=== PATIENT | female | born 1970 | race Caucasian/White ===

== ENCOUNTER 2017-09-26 19:43 | Emergency (ER) | payer MEDICAID ==
[~2017-09-26] VITALS: Ht 157.5 cm; Wt 84.5 kg
[2017-09-26 20:22] VITALS: Ht 157.5 cm; Wt 84.5 kg
[2017-09-27] MEDS ORDERED: ACET500C5 PO (00:35)
--- NOTE | 2017-09-27 00:39 | ERD ---
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 Patient reports that she also fell on her left knee. States that she took Tylenol at 7 PM. Denies any chest pain, shortness of breath, nausea, vomiting, diarrhea, dizziness. Denies any weakness, fever, chills. ROS All systems reviewed and are negative except as per history of present illness. Medications Home Meds Active Scripts Acetaminophen* (Tylophen*) 500 Mg Capsule, 1 CAP PO Q6H Y for PAIN AND OR ELEVATED TEMP, #20 CAP Prov:DORA ALMODOVAR PA-C 09/27/17 Allergies Allergies: Coded Allergies: cephalexin (Verified Allergy, Severe, rash, 09/26/17) PMhx/Soc Medical and Surgical Hx: pt denies Medical Hx, pt denies Surgical Hx History of Surgery: No Anesthesia Reaction: No Hx Neurological Disorder: No Hx Respiratory Disorders: No Hx Cardiac Disorders: No Hx Psychiatric Problems: No Hx Miscellaneous Medical Probl: No Hx Alcohol Use: No Hx Substance Use: No Hx Tobacco Use: No Smoking Status: Never smoker Physical Exam Vitals Vital Signs Date Time Temp Pulse Resp B/P Pulse Ox O2 Delivery O2 Flow Rate FiO2 09/26/17 20:22 98.5 72 20 151/63 98 Physical Exam Const: [id number], well-nourished. In no acute distress. Head: Atraumatic, normocephalic Eyes: Normal Conjunctiva without injection ENT: Normal external ear, nose and mouth. Neck: Full range of motion. No meningismus. Resp: Clear to auscultation bilaterally. No wheezing, rhonchi, rales, or crackles. No accessory muscle use. No retractions. Cardio: Regular rate and rhythm, no murmurs Skin: No petechiae or rashes Back: No midline tenderness. No CVA tenderness. Ext: No cyanosis, or edema. Cap refill less than 2 seconds. Distal pulses intact bilaterally. Tenderness to palpation of right lateral malleolus and distal phalanx. No deformities. No erythema. Tenderness to palpation of left knee. Limping gait due to pain. Neur: Awake and alert. Limping gait and normal coordination. Muscle strength 5/ 5. Sensation intact bilaterally. Psych: Normal Mood and Affect Procedures/MDM This is a 47-year-old female patient with no significant past medical history presents to the ED complaining of a mechanical fall 4 hours prior to arrival. Patient is afebrile and nontoxic-appearing. Patient has normal vital signs. A left knee x-ray, right ankle, right foot x-ray was ordered to further evaluate patient. Pending the x-ray results, this patient has been signed out to my colleague, JOE Corley. PROCEDURE: XR Knee. CLINICAL INDICATION: Pain. TECHNIQUE: Three views of the left knee are available for review. COMPARISON: None available FINDINGS: There is no fracture. Joint relationships are maintained. Bone mineralization is within normal limits. A suprapatellar joint effusion is likely. Soft tissues are otherwise unremarkable. IMPRESSION: 1. Probable suprapatellar joint effusion. 2. No acute fracture or dislocation is seen. PROCEDURE: XR Right Ankle. CLINICAL INDICATION: Injury. Pain. TECHNIQUE: Three views of the right ankle were performed. COMPARISON: None. FINDINGS: There is lateral malleolar subcutaneous soft tissue swelling. There is no underlying fracture. Joint relationships are maintained. Ankle mortise is intact. Plantar calcaneal bone spur is present. Bone mineralization is within normal limits. IMPRESSION: Lateral malleolar subcutaneous soft tissue swelling without underlying fracture. Plantar calcaneal bone spur. PROCEDURE: XR Right Foot. CLINICAL INDICATION: Pain. TECHNIQUE: AP, lateral and oblique views of the right foot was obtained. The images were reviewed on a PACS workstation. COMPARISON: None. FINDINGS: There are no fractures. Joint relationships are maintained. Bone mineralization is within normal limits. Plantar calcaneal bone spur is present. There is lateral malleolar subcutaneous soft tissue swelling IMPRESSION: Lateral malleolar subcutaneous soft tissue swelling. No underlying fracture. Plantar calcaneal bone spur. Left knee immobilizer and albertina wrap of right ankle applied. Crutches given to patient to help with ambulation. Splint Assessment: Neurovascularly intact pre and post splint placement with good fit. Left knee sprain and right ankle sprain noted. Patient's extremity symptoms have stabilized while they have been evaluated in the department and are appropriate for outpatient follow up. No evidence of fractures, dislocations, compartment syndrome, neurologic injury, vascular injury, open joint, open fracture, tendon laceration, septic arthritis, osteomyelitis, DVT, foreign body , or other emergent conditions. Discharge medications: Tylenol Follow up with primary care physician in 1-2 days for a referral to an orthopedic physician. Instructed patient to return to the ED sooner for any worsening symptoms. Patient's questions were answered. Patient understood and agreed with discharge plan. Patient discharged stable. Departure Diagnosis: Primary Impression: Ankle injury Encounter type: initial encounter Laterality: right Qualified Code: S99.911A - Injury of right ankle, initial encounter Additional Impressions: Knee injury Encounter type: initial encounter Laterality: left Qualified Code: S89.92XA - Injury of left knee, initial encounter Foot injury Encounter type: initial encounter Laterality: right Qualified Code: S99.921A - Injury of right foot, initial encounter Condition: Stable Patient Instructions: What Are Ankle Sprains?, Reducing Knee Pain and Swelling , Sprain Foot Referrals: [facility] YOU HAVE RECEIVED A MEDICAL SCREENING EXAM AND THE RESULTS INDICATE THAT YOU DO NOT HAVE A CONDITION THAT REQUIRES URGENT TREATMENT IN THE EMERGENCY DEPARTMENT. FURTHER EVALUATION AND TREATMENT OF YOUR CONDITION CAN WAIT UNTIL YOU ARE SEEN IN YOUR DOCTORS OFFICE WITHIN THE NEXT 1-2 DAYS. IT IS YOUR RESPONSIBILITY TO MAKE AN APPOINTMENT FOR FOLOW-UP CARE. IF YOU HAVE A PRIMARY DOCTOR --you should call your primary doctor and schedule an appointment IF YOU DO NOT HAVE A PRIMARY DOCTOR YOU CAN CALL OUR PHYSICIAN REFERRAL HOTLINE AT IF YOU CAN NOT AFFORD TO SEE A PHYSICIAN YOU CAN CHOSE FROM THE FOLLOWING [facility] [address] [facility]. [facility] [address] [facility]. [facility] [address] [facility]. [facility] [address] [facility]. [facility] [address] [facility]. [facility]. [address] [facility]. [facility] YOU HAVE RECEIVED A MEDICAL SCREENING EXAM AND THE RESULTS INDICATE THAT YOU DO NOT HAVE A CONDITION THAT REQUIRES URGENT TREATMENT IN THE EMERGENCY DEPARTMENT. FURTHER EVALUATION AND TREATMENT OF YOUR CONDITION CAN WAIT UNTIL YOU ARE SEEN IN YOUR DOCTORS OFFICE WITHIN THE NEXT 1-2 DAYS. IT IS YOUR RESPONSIBILITY TO MAKE AN APPOINTMENT FOR FOLOW-UP CARE. IF YOU HAVE A PRIMARY DOCTOR --you should call your primary doctor and schedule and appointment IF YOU DO NOT HAVE A PRIMARY DOCTOR YOU CAN CALL OUR PHYSICIAN REFERRAL HOTLINE AT . IF YOU CAN NOT AFFORD TO SEE A PHYSICIAN YOU CAN CHOSE FROM THE FOLLOWING [facility] INSTITUTIONS: [facility] [address] [place] [address] [facility] [address] [place] [address] [facility] + [facility] [address] [place] [address] [facility] URGENT CARE/SPECIALTIES Additional Instructions: FOLLOW UP WITH YOUR PRIMARY CARE PHYSICIAN TOMORROW for a referral to an orthopedic physician for further evaluation and treatment.Return to this facility if you are not improving as expected. DORA ALMODOVAR PA-C Sep 27, 2017 00:39
--- NOTE | 2017-09-27 00:39 | ERD ---
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 Patient reports that she also fell on her left knee. States that she took Tylenol at 7 PM. Denies any chest pain, shortness of breath, nausea, vomiting, diarrhea, dizziness. Denies any weakness, fever, chills. ROS All systems reviewed and are negative except as per history of present illness. Medications Home Meds Active Scripts Acetaminophen* (Tylophen*) 500 Mg Capsule, 1 CAP PO Q6H Y for PAIN AND OR ELEVATED TEMP, #20 CAP Prov:DORA ALMODOVAR PA-C 09/27/17 Allergies Allergies: Coded Allergies: cephalexin (Verified Allergy, Severe, rash, 09/26/17) PMhx/Soc Medical and Surgical Hx: pt denies Medical Hx, pt denies Surgical Hx History of Surgery: No Anesthesia Reaction: No Hx Neurological Disorder: No Hx Respiratory Disorders: No Hx Cardiac Disorders: No Hx Psychiatric Problems: No Hx Miscellaneous Medical Probl: No Hx Alcohol Use: No Hx Substance Use: No Hx Tobacco Use: No Smoking Status: Never smoker Physical Exam Vitals Vital Signs Date Time Temp Pulse Resp B/P Pulse Ox O2 Delivery O2 Flow Rate FiO2 09/26/17 20:22 98.5 72 20 151/63 98 Physical Exam Const: Sqv-zae-[id number], well-nourished. In no acute distress. Head: Atraumatic, normocephalic Eyes: Normal Conjunctiva without injection ENT: Normal external ear, nose and mouth. Neck: Full range of motion. No meningismus. Resp: Clear to auscultation bilaterally. No wheezing, rhonchi, rales, or crackles. No accessory muscle use. No retractions. Cardio: Regular rate and rhythm, no murmurs Skin: No petechiae or rashes Back: No midline tenderness. No CVA tenderness. Ext: No cyanosis, or edema. Cap refill less than 2 seconds. Distal pulses intact bilaterally. Tenderness to palpation of right lateral malleolus and distal phalanx. No deformities. No erythema. Tenderness to palpation of left knee. Limping gait due to pain. Neur: Awake and alert. Limping gait and normal coordination. Muscle strength 5/ 5. Sensation intact bilaterally. Psych: Normal Mood and Affect Procedures/MDM This is a 47-year-old female patient with no significant past medical history presents to the ED complaining of a mechanical fall 4 hours prior to arrival. Patient is afebrile and nontoxic-appearing. Patient has normal vital signs. A left knee x-ray, right ankle, right foot x-ray was ordered to further evaluate patient. Pending the x-ray results, this patient has been signed out to my colleague, JOE Corley. PROCEDURE: XR Knee. CLINICAL INDICATION: Pain. TECHNIQUE: Three views of the left knee are available for review. COMPARISON: None available FINDINGS: There is no fracture. Joint relationships are maintained. Bone mineralization is within normal limits. A suprapatellar joint effusion is likely. Soft tissues are otherwise unremarkable. IMPRESSION: 1. Probable suprapatellar joint effusion. 2. No acute fracture or dislocation is seen. PROCEDURE: XR Right Ankle. CLINICAL INDICATION: Injury. Pain. TECHNIQUE: Three views of the right ankle were performed. COMPARISON: None. FINDINGS: There is lateral malleolar subcutaneous soft tissue swelling. There is no underlying fracture. Joint relationships are maintained. Ankle mortise is intact. Plantar calcaneal bone spur is present. Bone mineralization is within normal limits. IMPRESSION: Lateral malleolar subcutaneous soft tissue swelling without underlying fracture. Plantar calcaneal bone spur. PROCEDURE: XR Right Foot. CLINICAL INDICATION: Pain. TECHNIQUE: AP, lateral and oblique views of the right foot was obtained. The images were reviewed on a PACS workstation. COMPARISON: None. FINDINGS: There are no fractures. Joint relationships are maintained. Bone mineralization is within normal limits. Plantar calcaneal bone spur is present. There is lateral malleolar subcutaneous soft tissue swelling IMPRESSION: Lateral malleolar subcutaneous soft tissue swelling. No underlying fracture. Plantar calcaneal bone spur. Left knee immobilizer and albertina wrap of right ankle applied. Crutches given to patient to help with ambulation. Splint Assessment: Neurovascularly intact pre and post splint placement with good fit. Left knee sprain and right ankle sprain noted. Patient's extremity symptoms have stabilized while they have been evaluated in the department and are appropriate for outpatient follow up. No evidence of fractures, dislocations, compartment syndrome, neurologic injury, vascular injury, open joint, open fracture, tendon laceration, septic arthritis, osteomyelitis, DVT, foreign body , or other emergent conditions. Discharge medications: Tylenol Follow up with primary care physician in 1-2 days for a referral to an orthopedic physician. Instructed patient to return to the ED sooner for any worsening symptoms. Patient's questions were answered. Patient understood and agreed with discharge plan. Patient discharged stable. Departure Diagnosis: Primary Impression: Ankle injury Encounter type: initial encounter Laterality: right Qualified Code: S99.911A - Injury of right ankle, initial encounter Additional Impressions: Knee injury Encounter type: initial encounter Laterality: left Qualified Code: S89.92XA - Injury of left knee, initial encounter Foot injury Encounter type: initial encounter Laterality: right Qualified Code: S99.921A - Injury of right foot, initial encounter Condition: Stable Patient Instructions: What Are Ankle Sprains?, Reducing Knee Pain and Swelling , Sprain Foot Referrals: [facility] YOU HAVE RECEIVED A MEDICAL SCREENING EXAM AND THE RESULTS INDICATE THAT YOU DO NOT HAVE A CONDITION THAT REQUIRES URGENT TREATMENT IN THE EMERGENCY DEPARTMENT. FURTHER EVALUATION AND TREATMENT OF YOUR CONDITION CAN WAIT UNTIL YOU ARE SEEN IN YOUR DOCTORS OFFICE WITHIN THE NEXT 1-2 DAYS. IT IS YOUR RESPONSIBILITY TO MAKE AN APPOINTMENT FOR FOLOW-UP CARE. IF YOU HAVE A PRIMARY DOCTOR --you should call your primary doctor and schedule an appointment IF YOU DO NOT HAVE A PRIMARY DOCTOR YOU CAN CALL OUR PHYSICIAN REFERRAL HOTLINE AT IF YOU CAN NOT AFFORD TO SEE A PHYSICIAN YOU CAN CHOSE FROM THE FOLLOWING [facility] [address] [facility]. [facility] [address] [facility]. [facility] [address] [facility] [address] [facility] [address] [facility]. [facility]. [address] [facility]. [facility] YOU HAVE RECEIVED A MEDICAL SCREENING EXAM AND THE RESULTS INDICATE THAT YOU DO NOT HAVE A CONDITION THAT REQUIRES URGENT TREATMENT IN THE EMERGENCY DEPARTMENT. FURTHER EVALUATION AND TREATMENT OF YOUR CONDITION CAN WAIT UNTIL YOU ARE SEEN IN YOUR DOCTORS OFFICE WITHIN THE NEXT 1-2 DAYS. IT IS YOUR RESPONSIBILITY TO MAKE AN APPOINTMENT FOR FOLOW-UP CARE. IF YOU HAVE A PRIMARY DOCTOR --you should call your primary doctor and schedule and appointment IF YOU DO NOT HAVE A PRIMARY DOCTOR YOU CAN CALL OUR PHYSICIAN REFERRAL HOTLINE AT . IF YOU CAN NOT AFFORD TO SEE A PHYSICIAN YOU CAN CHOSE FROM THE FOLLOWING [facility] INSTITUTIONS: [facility] [address] [place] [address] [facility] [address] [place] [address] [facility] + [facility] [address] [place] [address] [facility] URGENT CARE/SPECIALTIES Additional Instructions: FOLLOW UP WITH YOUR PRIMARY CARE PHYSICIAN TOMORROW for a referral to an orthopedic physician for further evaluation and treatment.Return to this facility if you are not improving as expected. DORA ALMODOVAR PA-C Sep 27, 2017 00:39
--- NOTE | 2017-09-27 00:39 | ERD ---
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 Patient reports that she also fell on her left knee. States that she took Tylenol at 7 PM. Denies any chest pain, shortness of breath, nausea, vomiting, diarrhea, dizziness. Denies any weakness, fever, chills. ROS All systems reviewed and are negative except as per history of present illness. Medications Home Meds Active Scripts Acetaminophen* (Tylophen*) 500 Mg Capsule, 1 CAP PO Q6H Y for PAIN AND OR ELEVATED TEMP, #20 CAP Prov:DORA ALMODOVAR PA-C 09/27/17 Allergies Allergies: Coded Allergies: cephalexin (Verified Allergy, Severe, rash, 09/26/17) PMhx/Soc Medical and Surgical Hx: pt denies Medical Hx, pt denies Surgical Hx History of Surgery: No Anesthesia Reaction: No Hx Neurological Disorder: No Hx Respiratory Disorders: No Hx Cardiac Disorders: No Hx Psychiatric Problems: No Hx Miscellaneous Medical Probl: No Hx Alcohol Use: No Hx Substance Use: No Hx Tobacco Use: No Smoking Status: Never smoker Physical Exam Vitals Vital Signs Date Time Temp Pulse Resp B/P Pulse Ox O2 Delivery O2 Flow Rate FiO2 09/26/17 20:22 98.5 72 20 151/63 98 Physical Exam Const: Swl-lrd-mwlvnnzqs, well-nourished. In no acute distress. Head: Atraumatic, normocephalic Eyes: Normal Conjunctiva without injection ENT: Normal external ear, nose and mouth. Neck: Full range of motion. No meningismus. Resp: Clear to auscultation bilaterally. No wheezing, rhonchi, rales, or crackles. No accessory muscle use. No retractions. Cardio: Regular rate and rhythm, no murmurs Skin: No petechiae or rashes Back: No midline tenderness. No CVA tenderness. Ext: No cyanosis, or edema. Cap refill less than 2 seconds. Distal pulses intact bilaterally. Tenderness to palpation of right lateral malleolus and distal phalanx. No deformities. No erythema. Tenderness to palpation of left knee. Limping gait due to pain. Neur: Awake and alert. Limping gait and normal coordination. Muscle strength 5/ 5. Sensation intact bilaterally. Psych: Normal Mood and Affect Procedures/MDM This is a 47-year-old female patient with no significant past medical history presents to the ED complaining of a mechanical fall 4 hours prior to arrival. Patient is afebrile and nontoxic-appearing. Patient has normal vital signs. A left knee x-ray, right ankle, right foot x-ray was ordered to further evaluate patient. Pending the x-ray results, this patient has been signed out to my colleague, JOE Corley. PROCEDURE: XR Knee. CLINICAL INDICATION: Pain. TECHNIQUE: Three views of the left knee are available for review. COMPARISON: None available FINDINGS: There is no fracture. Joint relationships are maintained. Bone mineralization is within normal limits. A suprapatellar joint effusion is likely. Soft tissues are otherwise unremarkable. IMPRESSION: 1. Probable suprapatellar joint effusion. 2. No acute fracture or dislocation is seen. PROCEDURE: XR Right Ankle. CLINICAL INDICATION: Injury. Pain. TECHNIQUE: Three views of the right ankle were performed. COMPARISON: None. FINDINGS: There is lateral malleolar subcutaneous soft tissue swelling. There is no underlying fracture. Joint relationships are maintained. Ankle mortise is intact. Plantar calcaneal bone spur is present. Bone mineralization is within normal limits. IMPRESSION: Lateral malleolar subcutaneous soft tissue swelling without underlying fracture. Plantar calcaneal bone spur. PROCEDURE: XR Right Foot. CLINICAL INDICATION: Pain. TECHNIQUE: AP, lateral and oblique views of the right foot was obtained. The images were reviewed on a PACS workstation. COMPARISON: None. FINDINGS: There are no fractures. Joint relationships are maintained. Bone mineralization is within normal limits. Plantar calcaneal bone spur is present. There is lateral malleolar subcutaneous soft tissue swelling IMPRESSION: Lateral malleolar subcutaneous soft tissue swelling. No underlying fracture. Plantar calcaneal bone spur. Left knee immobilizer and albertina wrap of right ankle applied. Crutches given to patient to help with ambulation. Splint Assessment: Neurovascularly intact pre and post splint placement with good fit. Left knee sprain and right ankle sprain noted. Patient's extremity symptoms have stabilized while they have been evaluated in the department and are appropriate for outpatient follow up. No evidence of fractures, dislocations, compartment syndrome, neurologic injury, vascular injury, open joint, open fracture, tendon laceration, septic arthritis, osteomyelitis, DVT, foreign body , or other emergent conditions. Discharge medications: Tylenol Follow up with primary care physician in 1-2 days for a referral to an orthopedic physician. Instructed patient to return to the ED sooner for any worsening symptoms. Patient's questions were answered. Patient understood and agreed with discharge plan. Patient discharged stable. Departure Diagnosis: Primary Impression: Ankle injury Encounter type: initial encounter Laterality: right Qualified Code: S99.911A - Injury of right ankle, initial encounter Additional Impressions: Knee injury Encounter type: initial encounter Laterality: left Qualified Code: S89.92XA - Injury of left knee, initial encounter Foot injury Encounter type: initial encounter Laterality: right Qualified Code: S99.921A - Injury of right foot, initial encounter Condition: Stable Patient Instructions: What Are Ankle Sprains?, Reducing Knee Pain and Swelling , Sprain Foot Referrals: [facility] YOU HAVE RECEIVED A MEDICAL SCREENING EXAM AND THE RESULTS INDICATE THAT YOU DO NOT HAVE A CONDITION THAT REQUIRES URGENT TREATMENT IN THE EMERGENCY DEPARTMENT. FURTHER EVALUATION AND TREATMENT OF YOUR CONDITION CAN WAIT UNTIL YOU ARE SEEN IN YOUR DOCTORS OFFICE WITHIN THE NEXT 1-2 DAYS. IT IS YOUR RESPONSIBILITY TO MAKE AN APPOINTMENT FOR FOLOW-UP CARE. IF YOU HAVE A PRIMARY DOCTOR --you should call your primary doctor and schedule an appointment IF YOU DO NOT HAVE A PRIMARY DOCTOR YOU CAN CALL OUR PHYSICIAN REFERRAL HOTLINE AT IF YOU CAN NOT AFFORD TO SEE A PHYSICIAN YOU CAN CHOSE FROM THE FOLLOWING [facility] [address] [facility]. [facility] [address] [facility]. [facility] [address] [facility] [address] [facility] [address] [facility] [facility]. [address] [facility]. [facility] YOU HAVE RECEIVED A MEDICAL SCREENING EXAM AND THE RESULTS INDICATE THAT YOU DO NOT HAVE A CONDITION THAT REQUIRES URGENT TREATMENT IN THE EMERGENCY DEPARTMENT. FURTHER EVALUATION AND TREATMENT OF YOUR CONDITION CAN WAIT UNTIL YOU ARE SEEN IN YOUR DOCTORS OFFICE WITHIN THE NEXT 1-2 DAYS. IT IS YOUR RESPONSIBILITY TO MAKE AN APPOINTMENT FOR FOLOW-UP CARE. IF YOU HAVE A PRIMARY DOCTOR --you should call your primary doctor and schedule and appointment IF YOU DO NOT HAVE A PRIMARY DOCTOR YOU CAN CALL OUR PHYSICIAN REFERRAL HOTLINE AT . IF YOU CAN NOT AFFORD TO SEE A PHYSICIAN YOU CAN CHOSE FROM THE FOLLOWING [facility] INSTITUTIONS[facility] [facility] [address] [place] [address] [facility] [address] [place] [address] [facility] + [facility] [address] [place] [address] [facility] URGENT CARE/SPECIALTIES Additional Instructions: FOLLOW UP WITH YOUR PRIMARY CARE PHYSICIAN TOMORROW for a referral to an orthopedic physician for further evaluation and treatment.Return to this facility if you are not improving as expected. DORA ALMODOVAR PA-C Sep 27, 2017 00:39
--- NOTE | 2017-09-27 00:50 | RADRPT ---
PROCEDURE: XR Right Ankle. CLINICAL INDICATION: Injury. Pain. TECHNIQUE: Three views of the right ankle were performed. COMPARISON: None. FINDINGS: There is lateral malleolar subcutaneous soft tissue swelling. There is no underlying fracture. Amanda nt relationships are maintained. Ankle mortise is intact. Plantar calcaneal bone spur is present. B one mineralization is within normal limits. IMPRESSION: Lateral malleolar subcutaneous soft tissue swelling without underlying fracture. Plantar calcaneal b one spur. RPTAT: HMVK .Kunal Ornelas MD, Date Time Electronically viewed and signed by .Kunal Ornelas MD, on 09/27/2017 00:50 .K/
--- NOTE | 2017-09-27 00:52 | RADRPT ---
PROCEDURE: XR Right Foot. CLINICAL INDICATION: Pain. TECHNIQUE: AP, lateral and oblique views of the right foot was obtained. The images were reviewed on a PACS workstation. COMPARISON: None. FINDINGS: There are no fractures. Joint relationships are maintained. Bone mineralization is within normal l imits. Plantar calcaneal bone spur is present. There is lateral malleolar subcutaneous soft tissue s welling IMPRESSION: Lateral malleolar subcutaneous soft tissue swelling. No underlying fracture. Plantar calcaneal bone spur. RPTAT: [facility]VK .Kunal Ornelas MD, MD Date Time Electronically viewed and signed by .Kunal Ornelas MD, on 09/27/2017 00:51 .K/
--- NOTE | 2017-09-27 02:03 | RADRPT ---
PROCEDURE: XR Knee. CLINICAL INDICATION: Pain. TECHNIQUE: Three views of the left knee are available for review. COMPARISON: None available FINDINGS: There is no fracture. Joint relationships are maintained. Bone mineralization is within normal sanchez its. A suprapatellar joint effusion is likely. Soft tissues are otherwise unremarkable. IMPRESSION: 1. Probable suprapatellar joint effusion. 2. No acute fracture or dislocation is seen. RPTAT: [facility]VK .Kunal Ornelas MD, Date Time Electronically viewed and signed by .Kunal Ornelas MD, on 09/27/2017 02:03 .K/
== END 2017-09-27 03:01 | disposition home or self-care (01) ==
LOC: FTE 19:43
DX: S99.911A Unspecified injury of right ankle, initial encounter (principal); S89.92XA Unspecified injury of left lower leg, initial encounter; S99.921A Unspecified injury of right foot, initial encounter; W01.198A Fall on same level from slipping, tripping and stumbling with subsequent striking against other object, initial encounter; Y92.9 Unspecified place or not applicable
CPT/HCPCS: 29505; 73562; 73610; 73630; Z7502

== ENCOUNTER 2017-11-07 10:40 | Emergency (ER) | payer MEDICAID ==
[~2017-11-07] VITALS: Ht 154.9 cm; Wt 88.6 kg
[~2017-11-07 10:40] MED LIST: ACET500C5 PO
[2017-11-07 10:42] VITALS: Ht 154.9 cm; Wt 88.6 kg
[2017-11-07] MEDS ORDERED: ALBUTEROL 0.083% (NEB) 2.5 MG/3 ML AMP HHN STA (12:14)
[2017-11-07] MEDS ORDERED: predniSONE 20 MG TAB PO ONE (12:30)
[2017-11-07] MEDS ORDERED: IPRATROPIUM (NEB) 0.5 MG/2.5 ML AMP HHN ONE (12:30)
[2017-11-07] MEDS ORDERED: ALBU8.5H3 INH (13:35)
[2017-11-07] MEDS ORDERED: PRED20TA PO (13:35)
[2017-11-07] MEDS ORDERED: UDROBDM PO (13:35)
--- NOTE | 2017-11-07 13:40 | ERD ---
ER Documentation Chief Complaint Chief Complaint cold symptoms x 7 days HPI This 47-year-old female presents with cough and for last 7 days. She denies any fevers, chest pain, vomiting, abdominal pain. She has no productive mucus. ROS All systems reviewed and are negative except as per history of present illness. Medications Home Meds Active Scripts Guaifenesin-Dextromethorphan* (Robitussin* DM) 100MG/10MG/5ML Syrup, 5 ML PO Q4H Y for COUGH for 5 Days, ML Prov:BRENDA IQBAL MD 11/07/17 Albuterol Sulfate* (Proair HFA*) 8.5 Gm Hfa.aer.ad, 2 PUFF INH Q4, #1 INHALER Prov:BRENDA IQBAL MD 11/07/17 Prednisone* (Prednisone*) 20 Mg Tab, 40 MG PO DAILY for 4 Days, TAB Start November 08, 2017 Prov:BRENDA IQBAL MD 11/07/17 Acetaminophen* (Tylophen*) 500 Mg Capsule, 1 CAP PO Q6H Y for PAIN AND OR ELEVATED TEMP, #20 CAP Prov:DORA ALMODOVAR PA-C 09/27/17 Allergies Allergies: Coded Allergies: cephalexin (Verified Allergy, Severe, rash, 09/26/17) PMhx/Soc History of Surgery: No Anesthesia Reaction: No Hx Neurological Disorder: No Hx Respiratory Disorders: No Hx Cardiac Disorders: No Hx Psychiatric Problems: No Hx Miscellaneous Medical Probl: No Hx Alcohol Use: No Hx Substance Use: No Hx Tobacco Use: No Smoking Status: Never smoker Physical Exam Vitals Vital Signs Date Time Temp Pulse Resp B/P Pulse Ox O2 Delivery O2 Flow Rate FiO2 11/07/17 12:48 91 20 93 21 11/07/17 10:42 98.1 109 18 158/92 96 Physical Exam Const: [] Alert, [id number]. Head: Atraumatic Eyes: Normal Conjunctiva ENT: Normal External Ears, Nose and Mouth. TMs and oropharynx normal. Neck: Full range of motion..~ No meningismus. Resp: Clear to auscultation bilaterally. Coarse breath sounds and forced wheeze. No rales or retractions. Cardio: Regular rate and rhythm, no murmurs Abd: Soft, non tender, non distended. Normal bowel sounds Skin: No petechiae or rashes Back: No midline or flank tenderness Ext: No cyanosis, or edema Neur: Awake and alert Psych: Normal Mood and Affect Results 24 hrs Current Medications Medications (Trade) Dose Ordered Sig/Tamanna Route PRN Reason Start Time Stop Time Status Last Admin Dose Admin Prednisone (Prednisone) 40 mg ONCE ONCE PO 11/07/17 12:30 11/07/17 12:31 DC 11/07/17 12:24 Albuterol (Proventil 0.083% (Neb)) 2.5 mg ONCE STAT HHN 11/07/17 12:14 11/07/17 12:17 DC 11/07/17 12:36 Ipratropium [place] (Atrovent 0.02% (Neb)) 0.5 mg ONCE ONCE N 11/07/17 12:30 11/07/17 12:31 DC 11/07/17 12:37 Procedures/MDM Chest X-ray 1V Interpreted by me: Soft Tissue: No acute abnormalities Bones: No acute abnormalities Mediastinum/Cardiac Silhouette/Lungs: [No acute abnormalities] impression- normal 1 view chest x-ray Patient is given albuterol and Atrovent treatment. Patient clear lungs on serial exam. She is given prednisone 40 mg by mouth. Patient presents with URI symptoms and mild reactive airway disease without signs of hypoxemia, respiratory distress, signs of chest pain or abdominal pain. She will treated with pro-air, Robitussin and prednisone, primary care follow-up and return precautions. The patient was stable with no new complaints during the ER course. Clinically, there is no current evidence to suggest meningitis, sepsis, acute abdomen, pneumonia, acute coronary syndrome, pulmonary embolism, or any other emergent condition appearing to require further evaluation or hospitalization. The patient should certainly return for any new or worsening symptoms per the aftercare instructions. They should otherwise follow-up with her primary care doctor for reevaluation this week. Departure Diagnosis: Primary Impression: Wheezing Additional Impression: Upper respiratory infection URI type: unspecified URI Qualified Code: J06.9 - Upper respiratory tract infection, unspecified type Condition: Stable Patient Instructions: Uri, Viral W/ Wheezing (Adult) Additional Instructions: X-ray normal. probablamente un virus que dura 2-4 brand. cheque otro vez en el proximo marlee para mas simptomas- vomito, dolor, pepe, problemas con respirando , o con pelletier doctor primario. BRENDA IQBAL MD Nov 07, 2017 13:40
--- NOTE | 2017-11-07 13:42 | RADRPT ---
PROCEDURE: XR Chest. CLINICAL INDICATION: Cough. TECHNIQUE: Single frontal view of the chest was obtained. COMPARISON: None FINDINGS: The cardiomediastinal silhouette is normal in size. There are aortic calcifications. No focal consolidation is seen. No pleural effusion is seen. No definite pneumothorax. No acute osseous abnormality. IMPRESSION: No radiographic evidence of an acute cardiopulmonary process. RPTAT: AAEE Rubén Oakes Physician Date Time Electronically viewed and signed by Rubén Oakes Physician on 11/07/2017 13:42 PH/
[2017-11-07 13:55] VITALS: BP 152/88; PULSE 68; RESP 18; TEMP 98.1
== END 2017-11-07 14:00 | disposition home or self-care (01) ==
LOC: FTE 10:40
DX: J06.9 Acute upper respiratory infection, unspecified (principal)
CPT/HCPCS: 71010; 94664; J7512; Z7502; Z7610